=== PATIENT | male | born 1935 | race Caucasian/White ===

== ENCOUNTER 2016-09-23 06:25 | Day surgery (SDC) | payer OTHER, MEDICARE, BC ==
[~2016-09-23 06:25] MED LIST: ASPIRIN81 M1 PEG; BISCOLAX10 MG PR; CARDIZEM30 M1 PEG; CATAPRES-TTS 11 EACH TP; EPINEPHRINE TT; METOPROLOL IV; METOPROLOL TART25 M1 PEG; MILK OF MAGNESIA PEG; OMEPRAZOLE20 M3 PEG; PERCOCET 5-3251 EACH PEG; REMERON15 M1 PEG; RIFADIN300 M1 PEG; SODIUM CHLORIDE 0.9% IV; TYLENOL325 M2 PEG
[2016-09-23 07:43] LABS: INR 1.2 INR (0.9-1.1); PROTHROMBIN TIME 14.4 SECONDS (9.0-13.6)
== END 2016-09-23 11:58 | disposition other institution (70) ==
LOC: RADSP 06:25 → SHSB 06:30
PROVIDERS: Radiology Diagnostic Radiology
PROC: 0D20XUZ Change Feeding Device in Upper Intestinal Tract, External Approach (ICD-10-PCS; principal; 2016-09-23)
DX: K94.23 Gastrostomy malfunction (principal); I10 Essential (primary) hypertension; E78.5 Hyperlipidemia, unspecified; J44.9 Chronic obstructive pulmonary disease, unspecified; M54.5 Low back pain; G89.29 Other chronic pain; N40.0 Benign prostatic hyperplasia without lower urinary tract symptoms; Z87.11 Personal history of peptic ulcer disease; Z87.891 Personal history of nicotine dependence; Z79.899 Other long term (current) drug therapy; Z98.890 Other specified postprocedural states
CPT/HCPCS: C1751; C1769; C1894; J0690; J2250; J3010; Q9967